=== PATIENT | male | born 1945 | race Caucasian/White ===

== ENCOUNTER → 2019-01-14 | Outpatient (REF) | payer OTHER | LOC: M LAB LCGH 17:32 | PROVIDERS: ATTEND Surgery | DX: D22.62 Melanocytic nevi of left upper limb, including shoulder (principal) ==

== ENCOUNTER → 2019-12-15 | Outpatient (REF) | payer OTHER, MEDICARE ==
[~2019-12-15] MED LIST: ALLO100T PO; ASPI81TA86 PO; CLOP75TA2 PO; ECOT81TA5 PO; FERR325T16 PO; FURO40TA2 PO; POTA10TA14 PO; SIMV10TA21 PO
[2019-12-15 18:48] LABS: PERCENT SATURATION 2.5 % (19.7-50.0)
== END ==
LOC: M LAB REF 16:44
PROVIDERS: ATTEND Internal Medicine Nephrology
DX: D50.9 Iron deficiency anemia, unspecified (principal)

== ENCOUNTER 2019-12-30 09:14 | Outpatient (CLI) | payer MEDICARE, OTHER ==
[~2019-12-30] VITALS: Ht 170.2 cm; Wt 102.7 kg
[2019-12-30 09:20] VITALS: BP 153/68
[2019-12-30] MEDS ORDERED: methylPREDNISolone 125MG 2ML VIAL IV PRN (09:45)
[2019-12-30] MEDS ORDERED: NS 1,000 ML IV SCH (09:45)
[2019-12-30] MEDS ORDERED: ALBUTEROL SULFATE 2.5 MG/0.5 ML INH NEB SOLN INH PRN (09:45)
[2019-12-30] MEDS ORDERED: EPINEPHrine INJ 1 MG/ML 1ML AMP IM PRN (09:45)
[2019-12-30] MEDS ORDERED: FERRIC CARBOXYMALTOSE INJ 750 MG in NS 250 ML IV ONE (09:45)
[2019-12-30] MEDS ORDERED: diphenhydrAMINE 50MG/ML VIAL (J1200) IV PRN (09:45)
[2019-12-30 10:30] VITALS: BP 152/71
[2019-12-30] MEDS ORDERED: SIMV10TA21 PO (11:11)
[2019-12-30] MEDS ORDERED: ALLO100T PO (11:13)
[2019-12-30] MEDS ORDERED: FURO40TA2 PO (11:13)
[2019-12-30] MEDS ORDERED: CLOP75TA2 PO (11:13)
[2019-12-30] MEDS ORDERED: FERR325T16 PO (11:15)
[2019-12-30] MEDS ORDERED: ASPI81TA86 PO (11:15)
[2019-12-30] MEDS ORDERED: POTA10TA14 PO (11:15)
[2019-12-30 11:30] VITALS: BP 131/65
[2019-12-30 12:35] VITALS: BP 161/70
[2020-04-07] MEDS ORDERED: ECOT81TA5 PO (09:47)
== END 2019-12-30 12:35 | disposition home or self-care (01) ==
LOC: M INFU 09:14
PROVIDERS: ATTEND Internal Medicine Nephrology
DX: D50.9 Iron deficiency anemia, unspecified (principal)
CPT/HCPCS: 96365; 96366; J1439

== ENCOUNTER 2020-01-06 09:19 | Outpatient (CLI) | payer OTHER ==
[~2020-01-06] VITALS: Ht 170.2 cm; Wt 102.0 kg
[~2020-01-06 09:19] MED LIST changes: -ECOT81TA5 PO
[2020-01-06 09:30] VITALS: BP 161/67
[2020-01-06] MEDS ORDERED: diphenhydrAMINE 50MG/ML VIAL (J1200) IV PRN (09:45)
[2020-01-06] MEDS ORDERED: FERRIC CARBOXYMALTOSE INJ 750 MG in NS 250 ML IV ONE (09:45)
[2020-01-06] MEDS ORDERED: methylPREDNISolone 125MG 2ML VIAL IV PRN (09:45)
[2020-01-06] MEDS ORDERED: NS 1,000 ML IV ONE (09:45)
[2020-01-06] MEDS ORDERED: EPINEPHrine INJ 1 MG/ML 1ML AMP IM PRN (09:45)
[2020-01-06] MEDS ORDERED: ALBUTEROL SULFATE 2.5 MG/0.5 ML INH NEB SOLN INH PRN (09:45)
[2020-01-06 10:30] VITALS: BP 134/63
[2020-01-06 12:40] VITALS: BP 156/72
[2020-04-07] MEDS ORDERED: ECOT81TA5 PO (09:47)
== END 2020-01-06 12:40 | disposition home or self-care (01) ==
LOC: M INFU 09:19
PROVIDERS: ATTEND Internal Medicine Nephrology
DX: D50.9 Iron deficiency anemia, unspecified (principal)
CPT/HCPCS: 96365; 96366; J1439

== ENCOUNTER → 2020-04-09 | Outpatient (CLI) | payer OTHER ==
[~2020-04-09] MED LIST changes: +ECOT81TA5 PO
== END ==
LOC: M LABSMTC 08:30
PROVIDERS: ATTEND Anesthesiology
DX: Z01.812 Encounter for preprocedural laboratory examination (principal); Z20.828 Contact with and (suspected) exposure to other viral communicable diseases
CPT/HCPCS: C9803; U0003

== ENCOUNTER 2020-04-14 07:08 | Day surgery (SDC) | payer OTHER ==
[~2020-04-14] VITALS: Ht 170.2 cm; Wt 107.8 kg
[~2020-04-14 07:08] MED LIST changes: +CEFUROXIME 1MG/0.1ML INTRACAMERAL INJ As Ordered ONE; +DUOVISC (0.50ML VISCOAT/0.55ML PROVISC) OPHTH KIT As Ordered ONE; +OFLOXACIN 0.3 % (OCUFLOX) OPTH SOL 5ML OD ONE; +PHENYLEPHRINE 2.5% OPHTH SOL 2ML OD ONE; +POVIDONE-IODINE 5% OPHTH PREP SOL 30ML As Ordered ONE; +PROPARACAINE 0.5% OPHTH SOL 15ML OD ONE; +TROPICAMIDE 1% OPHTH SOLN 2ML OD ONE
[2020-04-14] MEDS ORDERED: BSS IRR 500ML/OMIDRIA 4ML IRR BAG (OR ONLY) (J1097 PER ML) As Ordered ONE (07:09)
[2020-04-14 09:17] VITALS: BP 146/67
[2020-04-14] MEDS ORDERED: fentaNYL 100 MCG/2 ML INJECTION (J3010) As Ordered ONE (09:37)
[2020-04-14] MEDS ORDERED: MIDAZOLAM INJ 2MG/2ML VIAL (J2250 PER 1MG) As Ordered ONE (09:37)
== END 2020-04-14 09:45 | disposition home or self-care (01) ==
LOC: M SDC 07:08
PROVIDERS: ATTEND Ophthalmology
DX: H25.11 Age-related nuclear cataract, right eye (principal); I10 Essential (primary) hypertension; I25.10 Atherosclerotic heart disease of native coronary artery without angina pectoris; E11.9 Type 2 diabetes mellitus without complications; E78.00 Pure hypercholesterolemia, unspecified; Z86.73 Personal history of transient ischemic attack (TIA), and cerebral infarction without residual deficits; Z79.82 Long term (current) use of aspirin; Z79.899 Other long term (current) drug therapy; Z91.040 Latex allergy status; G47.30 Sleep apnea, unspecified; N18.2 Chronic kidney disease, stage 2 (mild); D50.9 Iron deficiency anemia, unspecified; J45.909 Unspecified asthma, uncomplicated
CPT/HCPCS: 66984; J1097; J2250; J3010

== ENCOUNTER → 2020-04-16 | Outpatient (CLI) | payer OTHER ==
[~2020-04-16] MED LIST changes: -CEFUROXIME 1MG/0.1ML INTRACAMERAL INJ As Ordered ONE; -DUOVISC (0.50ML VISCOAT/0.55ML PROVISC) OPHTH KIT As Ordered ONE; -OFLOXACIN 0.3 % (OCUFLOX) OPTH SOL 5ML OD ONE; -PHENYLEPHRINE 2.5% OPHTH SOL 2ML OD ONE; -POVIDONE-IODINE 5% OPHTH PREP SOL 30ML As Ordered ONE; -PROPARACAINE 0.5% OPHTH SOL 15ML OD ONE; -TROPICAMIDE 1% OPHTH SOLN 2ML OD ONE
== END ==
LOC: M LABSMTC 08:00
PROVIDERS: ATTEND Anesthesiology
DX: Z01.812 Encounter for preprocedural laboratory examination (principal); Z20.828 Contact with and (suspected) exposure to other viral communicable diseases
CPT/HCPCS: C9803; U0003

== ENCOUNTER 2020-04-21 08:54 | Day surgery (SDC) | payer OTHER ==
[~2020-04-21] VITALS: Ht 170.2 cm; Wt 108.9 kg
[~2020-04-21 08:54] MED LIST changes: +CEFUROXIME 1MG/0.1ML INTRACAMERAL INJ As Ordered ONE; +DUOVISC (0.50ML VISCOAT/0.55ML PROVISC) OPHTH KIT As Ordered ONE; +OFLOXACIN 0.3 % (OCUFLOX) OPTH SOL 5ML OS ONE; +PHENYLEPHRINE 2.5% OPHTH SOL 2ML OS ONE; +POVIDONE-IODINE 5% OPHTH PREP SOL 30ML As Ordered ONE; +PROPARACAINE 0.5% OPHTH SOL 15ML OS ONE; +TROPICAMIDE 1% OPHTH SOLN 2ML OS ONE
[2020-04-21] MEDS ORDERED: BSS IRR 500ML/OMIDRIA 4ML IRR BAG (OR ONLY) (J1097 PER ML) As Ordered ONE (10:07)
[2020-04-21] MEDS ORDERED: fentaNYL 100 MCG/2 ML INJECTION (J3010) As Ordered ONE (10:51)
[2020-04-21] MEDS ORDERED: MIDAZOLAM INJ 2MG/2ML VIAL (J2250 PER 1MG) As Ordered ONE (10:51)
[2020-04-21 11:45] VITALS: BP 145/66
== END 2020-04-21 12:07 | disposition home or self-care (01) ==
LOC: M SDC 08:54
PROVIDERS: ATTEND Ophthalmology
DX: H25.12 Age-related nuclear cataract, left eye (principal); I10 Essential (primary) hypertension; E11.9 Type 2 diabetes mellitus without complications; I25.10 Atherosclerotic heart disease of native coronary artery without angina pectoris; D50.9 Iron deficiency anemia, unspecified; G47.30 Sleep apnea, unspecified; Z79.899 Other long term (current) drug therapy; Z79.01 Long term (current) use of anticoagulants; Z86.73 Personal history of transient ischemic attack (TIA), and cerebral infarction without residual deficits; Z86.718 Personal history of other venous thrombosis and embolism; Z91.040 Latex allergy status; Z88.4 Allergy status to anesthetic agent
CPT/HCPCS: 66984; J1097; J2250; J3010

== ENCOUNTER → 2022-06-28 | Outpatient (REF) | payer OTHER ==
[~2022-06-28] MED LIST changes: -CEFUROXIME 1MG/0.1ML INTRACAMERAL INJ As Ordered ONE; -DUOVISC (0.50ML VISCOAT/0.55ML PROVISC) OPHTH KIT As Ordered ONE; +FERR324T21 PO; -FERR325T16 PO; -OFLOXACIN 0.3 % (OCUFLOX) OPTH SOL 5ML OS ONE; -PHENYLEPHRINE 2.5% OPHTH SOL 2ML OS ONE; -POTA10TA14 PO; +POTA1TAB24 PO; -POVIDONE-IODINE 5% OPHTH PREP SOL 30ML As Ordered ONE; -PROPARACAINE 0.5% OPHTH SOL 15ML OS ONE; -TROPICAMIDE 1% OPHTH SOLN 2ML OS ONE
[2022-06-28 18:05] LABS: TOTAL PROTEIN,RANDOM URINE 26.2 MG/DL (0.0-14.0)
[2022-06-28 18:08] LABS: PERCENT SATURATION 21.2 % (19.7-50.0)
[2022-06-28 18:10] LABS: CREATININE,RANDOM URINE 43.7 MG/DL
[2022-06-28 18:11] LABS: FERRITIN 74.8 NG/ML (10.5-307.3)
== END ==
LOC: M LAB REF 16:44
PROVIDERS: ATTEND Internal Medicine Nephrology
DX: R80.9 Proteinuria, unspecified (principal); D63.1 Anemia in chronic kidney disease

== ENCOUNTER → 2023-01-30 | Outpatient (REF) | payer OTHER ==
[2023-01-30 17:57] LABS: PERCENT SATURATION 33.7 % (19.7-50.0)
[2023-01-30 17:59] LABS: FERRITIN 99.9 NG/ML (10.5-307.3)
== END ==
LOC: M LAB REF 17:08
PROVIDERS: ATTEND Internal Medicine Nephrology
DX: N18.2 Chronic kidney disease, stage 2 (mild) (principal); D63.1 Anemia in chronic kidney disease

== ENCOUNTER → 2023-08-08 | Outpatient (REF) | payer OTHER ==
[2023-08-08 18:57] LABS: TOTAL PROTEIN,RANDOM URINE 41.5 MG/DL (0.0-14.0)
[2023-08-08 19:02] LABS: CREATININE,RANDOM URINE 68.8 MG/DL
[2023-08-08 19:04] LABS: FERRITIN 92.9 NG/ML (10.5-307.3)
== END ==
LOC: M LAB REF 17:25
PROVIDERS: ATTEND Internal Medicine Nephrology
DX: N18.31 Chronic kidney disease, stage 3a (principal); R80.9 Proteinuria, unspecified; D63.1 Anemia in chronic kidney disease